=== PATIENT | male | born 1990 ===

== ENCOUNTER 2017-12-01 18:30 | Emergency (ER) | payer OTHER ==
[2017-12-01 19:15] VITALS: BP 139/101; PULSE 77; TEMP 98.9; BMI 25.1
--- NOTE | 2017-12-01 19:30 | PDOC ---
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 He presents emergency Department with 2 weeks of intermittent chest pain. Patient states he has noticed that his chest pain has worsened in severity, and increased in frequency over the last 2 weeks. Pain is located in the left chest, described as muscle cramping. Episodes last approximately 10 minutes and self resolved. Pain radiates to the arm and to the left neck. No shortness of breath. No recent travel. Prior to 2 weeks ago, no prior episodes like this. Patient initially states that there are no exacerbating or alleviating factors. However when asked specifically if pain worsens when he exerts himself, he states yes but not all the time. Pain improves when patient relaxes. No cough. No skin changes/rash. No chest wall trauma No chest pain now PMH: Hyperaldostoronism PSH: Denies Meds: Spironolactone ALL: NKDA Social: Denies Drug, Tobacco use FH: non contributory GENERAL/CONSTITUTIONAL: No: fever, chills, weakness, loss of appetite. HEAD, EYES, EARS, NOSE AND THROAT: No: change in vision, ear pain, discharge, sore throat, throat swelling. CARDIOVASCULAR: Yes: chest pain No: lightheadedness, palpitations, syncope RESPIRATORY: No: cough, shortness of breath, wheezing, hemoptysis, stridor. GASTROINTESTINAL: No: nausea, vomiting, diarrhea, abdominal cramping, rectal bleeding, constipation. GENITOURINARY: No: dysuria, hematuria, frequency, urgency, flank pain. MUSCULOSKELETAL: No: back pain, neck pain, joint pain, muscle swelling or pain SKIN AND BREASTS: No: lesions, pallor, rash or easy bruising. NEUROLOGIC: No: headache, vertigo, paresthesias, weakness ENDOCRINE: No: unexplained weight gain or loss HEMATOLOGIC/LYMPHATIC: No: anemia, easy bleeding, swelling nodes. GENERAL: The patient is in no acute distress. HEAD: Normal with no signs of trauma. EYES: PERRLA, EOMI, sclera anicteric, conjunctiva clear. ENT: Ears normal, nares patent, oropharynx clear without exudates. Moist mucous membranes. NECK: Normal range of motion, supple without lymphadenopathy, JVD, or masses. LUNGS: Breath sounds equal, clear to auscultation bilaterally. No wheezes, and no crackles. HEART:Regular rate and rhythm, normal S1 and S2 without murmur, rub or gallop. ABDOMEN: Soft, nontender, normoactive bowel sounds. No guarding, no rebound. No masses palpable. EXTREMITIES: Normal range of motion, no edema. No clubbing or cyanosis. No erythema, or tenderness. NEUROLOGICAL: Cranial nerves II through XII grossly intact. Normal speech. No focal neurological deficits. MUSCULOSKELETAL: Back non-tender to palpation, no CVA tenderness SKIN: Warm, Dry, normal turgor, no rashes or lesions noted. 12/01/17 20:07 Past History - Past Medical History Allergies/Adverse Reactions: Allergies Allergy/AdvReac Type Severity Reaction Status Date / Time No Known Allergies Allergy Verified 12/01/17 19:02 Home Medications: Ambulatory Orders Spironolactone 100 mg PO DAILY 12/01/17 COPD: No HTN: Yes - Suicide/Smoking/Psychosocial Hx Smoking History: Current every day smoker Have you smoked in the past 12 months: Yes Number of Cigarettes Smoked Daily: 6 Information on smoking cessation initiated: Yes Substance Use Type: None *Physical Exam - Vital Signs Last Vital Signs Temp Pulse Resp BP Pulse Ox 98.9 F 77 20 139/101 100 12/01/17 18:32 12/01/17 18:32 12/01/17 18:32 12/01/17 18:32 12/01/17 18:32 ED Treatment Course - LABORATORY CBC & Chemistry Diagram: 12/01/17 19:43 12/01/17 19:43 Medical Decision Making - Medical Decision Making 12/01/17 19:30 EKG: SR rate of 87 bpm, axis nml, intervals nml, J point elevation v2, v3 12/01/17 20:09 DD includes Musculoskeletal pain, Pneumothorax, pleural effusion, pneumonia/bronchitis PE unlikely (Low risk wells, PERC negative) Will do: Labs CXR EKG Follow up with PMD 12/01/17 20:27 Laboratory Tests 12/01/17 19:43 WBC 8.2 Hgb 12.8 Hct 37.3 Plt Count 312 Neutrophils % 47.1 Lymphocytes % 38.2 12/01/17 20:59 Laboratory Tests 12/01/17 12/01/17 19:43 19:43 Sodium 136 Potassium 3.6 Chloride 105 Carbon Dioxide 23 BUN 19 H Creatinine 1.2 Random Glucose 84 Alkaline Phosphatase 70 Troponin I < 0.03 Labs WNL Pt chest pain free now Will plan to discharge to home Will ask pt to follow up with PMD *DC/Admit/Observation/Transfer Diagnosis at time of Disposition: Chest pain Qualifiers: Chest pain type: unspecified Qualified Code(s): R07.9 - Chest pain, unspecified - Discharge Dispostion Disposition: HOME Condition at time of disposition: Stable Decision to Admit order: No - Referrals Referrals: Serjio Abernathy MD [Staff Physician] - - Patient Instructions Printed Discharge Instructions: DI for Atypical Chest Pain Additional Instructions: Mr Cramer Thanks for coming in to the ER to be evaluated You MUST follow up with a primary care physician NEXT WEEK Please take Motrin for your chest pain If it worsens YOU MUST return to the ER to be re evaluated Please review your labs and EKG results (copies were given to you) - Post Discharge Activity
[2017-12-01 20:02] LABS: BASO % 0.9 % (0-2.0); EOS % 3.6 % (0-4.5); HEMATOCRIT 37.3 % (35.4-49); HEMOGLOBIN 12.8 GM/dl (11.7-16.9); LYMPH % 38.2 % (8-40); MCHC 34.3 g/dl (32.0-35.9); MEAN CELL VOLUME 87.5 fl (80-96); MEAN PLT VOLUME 7.4 fl (7.5-11.1); MONO % 10.2 % (3.8-10.2); NEUT % 47.1 % (42.8-82.8); PLATELET COUNT 312 K/MM3 (134-434); RBC 4.27 M/mm3 (4.00-5.60); RDW 11.5 % (11.9-15.9); WHITE BLOOD COUNT 8.2 K/mm3 (4.0-10.8)
[2017-12-01 20:20] LABS: ALBUMIN 4.5 g/dl (3.5-5.0); ALK PHOS 70 U/L (32-92); ANION GAP 8 (8-16); BILIRUBIN,TOTAL 0.8 mg/dl (0.2-1.0); BLOOD UREA NITROGEN 19 mg/dl (7-18); CALCIUM 9.2 mg/dl (8.4-10.2); CHLORIDE 105 mmol/L (98-107); CO2 23 mmol/L (22-28); CREATININE 1.2 mg/dl (0.6-1.3); GLUCOSE,RANDOM 84 mg/dl (74-106); POTASSIUM 3.6 mmol/L (3.5-5.1); SGOT/AST 29 U/L (10-42); SGPT/ALT 18 U/L (10-40); SODIUM 136 mmol/L (136-145); TOT PROT 6.9 g/dl (6.4-8.3)
--- NOTE | 2017-12-02 09:17 | EKG ---
Test Reason : Blood Pressure : / mmHG Vent. Rate : 087 BPM Atrial Rate : 087 BPM P-R Int : 152 ms QRS Dur : 084 ms QT Int : 368 ms P-R-T Axes : 057 018 017 degrees QTc Int : 442 ms NORMAL SINUS RHYTHM ST ELEVATION, CONSIDER EARLY REPOLARIZATION BORDERLINE ECG NO PREVIOUS ECGS AVAILABLE Confirmed by LUISANA KNOX MD ([id number]) on 12/02/2017 9:17:14 AM Referred By: MD MAST Confirmed By:LUISANA KNOX MD
== END 2017-12-01 21:23 | disposition home or self-care (01) ==
LOC: FER 18:30
DX: R07.9 Chest pain, unspecified (principal); E26.9 Hyperaldosteronism, unspecified
CPT/HCPCS: 36415; 71045-TC-FY; 80053; 84484; 85025; 93005; 99283-25

== ENCOUNTER 2017-12-23 19:03 | Emergency (ER) | payer OTHER ==
[2017-12-23 19:18] VITALS: PULSE 87; TEMP 98.7; BMI 25.1
--- NOTE | 2017-12-23 19:38 | PDOC ---
History of Present Illness - General History Source: Patient Exam Limitations: No Limitations - History of Present Illness Initial Comments: 12/23/17 21:01 Patient is a 27 year old male with a significant past medical history of hyperaldosteronism, currently taking spironolactone, HTN, who presents to the ED with complaints of throat pain that began multiple weeks ago. Patient reports experiencing throat pain that has gradually gotten worse over time, prompting him to come into the ED for further evaluation. He reports experiencing associated symptoms of difficulty swallowing and decreased appetite secondary to throat pain. Denies chest pain, Sob. Denies nausea, vomiting. Denies fevers, chills. Denies contact with sick individuals, out of state travelling. Denies dysuria, hematuria. Denies diarrhea, constipation. Denies head trauma, blurred vision, loss of consciousness. Denies any other symptoms. Allergies: None Social history: Lives with girlfriend. No smoking. No alcohol. Surgical history: None PMD: None <Kevin Mauro - Last Filed: 12/23/17 21:01> <Opal Dias - Last Filed: 12/23/17 21:31> - General Chief Complaint: Dysphagia Stated Complaint: SORE THROAT Time Seen by Provider: 12/23/17 19:37 Past History <Kevin Mauro - Last Filed: 12/23/17 21:01> - Past Medical History COPD: No HTN: Yes - Immunization History Immunization Up to Date: Yes - Suicide/Smoking/Psychosocial Hx Smoking History: Current every day smoker Have you smoked in the past 12 months: Yes Number of Cigarettes Smoked Daily: 6 Information on smoking cessation initiated: Yes 'Breaking Loose' booklet given: 12/23/17 Hx Alcohol Use: No Drug/Substance Use Hx: No Substance Use Type: None <Opal Dias - Last Filed: 12/23/17 21:31> - Past Medical History Allergies/Adverse Reactions: Allergies Allergy/AdvReac Type Severity Reaction Status Date / Time No Known Allergies Allergy Verified 12/23/17 19:05 Home Medications: Ambulatory Orders Spironolactone 100 mg PO DAILY 12/01/17 Ranitidine HCl [Zantac] 300 mg PO HS #30 tablet 12/23/17 Review of Systems - Review of Systems Able to Perform ROS?: Yes Comments:: 12/23/17 21:01 GENERAL/CONSTITUTIONAL: No fever or chills. No weakness. HEAD, EYES, EARS, NOSE AND THROAT: +Throat pain. No change in vision. No ear pain or discharge. CARDIOVASCULAR: No chest pain or shortness of breath. RESPIRATORY: No cough, wheezing, or hemoptysis. GASTROINTESTINAL: No nausea, vomiting, diarrhea or constipation. GENITOURINARY: No dysuria, frequency, or change in urination. MUSCULOSKELETAL: No joint or muscle swelling or pain. No neck or back pain. SKIN: No rash NEUROLOGIC: No headache, vertigo, loss of consciousness, or change in strength/ sensation. ENDOCRINE: No increased thirst. No abnormal weight change. HEMATOLOGIC/LYMPHATIC: No anemia, easy bleeding, or history of blood clots. ALLERGIC/IMMUNOLOGIC: No hives or skin allergy. <Kevin Mauro - Last Filed: 12/23/17 21:01> *Physical Exam - Vital Signs Last Vital Signs Temp Pulse Resp BP Pulse Ox 98.7 F 87 15 140/96 100 12/23/17 19:05 12/23/17 19:05 12/23/17 19:05 12/23/17 20:54 12/23/17 19:05 - Physical Exam Comments: 12/23/17 21:01 GENERAL: Awake, alert, and fully oriented, in no acute distress HEAD: No signs of trauma EYES: PERRLA, EOMI, sclera anicteric, conjunctiva clear ENT: +Enlarged tonsils bilaterally. Auricles normal inspection, hearing grossly normal, nares patent, oropharynx clear without exudates. Moist mucosa NECK: Normal ROM, supple, no lymphadenopathy, JVD, or masses LUNGS: Breath sounds equal, clear to auscultation bilaterally. No wheezes, and no crackles HEART: Regular rate and rhythm, normal S1 and S2, no murmurs, rubs or gallops ABDOMEN: Soft, nontender, normoactive bowel sounds. No guarding, no rebound. No masses EXTREMITIES: Normal range of motion, no edema. No clubbing or cyanosis. No cords, erythema, or tenderness NEUROLOGICAL: Cranial nerves II through XII grossly intact. Normal speech, normal gait SKIN: Warm, Dry, normal turgor, no rashes or lesions noted. <Kevin Mauro - Last Filed: 12/23/17 21:01> - Vital Signs Last Vital Signs Temp Pulse Resp BP Pulse Ox 98.7 F 87 15 159/109 100 12/23/17 19:05 12/23/17 19:05 12/23/17 19:05 12/23/17 19:05 12/23/17 19:05 <Opal Dias - Last Filed: 12/23/17 21:31> ED Treatment Course - ADDITIONAL ORDERS Additional order review: 12/23/17 20:15 Group A Strep Rapid Antigen - Final Throat NEGATIVE FOR THE ANTIGEN OF BETA HEMOLYTIC STREP GROUP A <Kevin Mauro - Last Filed: 12/23/17 21:01> Medical Decision Making - Medical Decision Making 12/23/17 21:29 Pt comes with sore throat and hx of GERD. He has a normal rapiud strep. His cheif complaint is difficulty swallowing large boluses of food. Soft tissue neck XR normal. POt referred to GI for upper EGD. Pt is well hydrated and his voice is normal. He is able to chew nd swallow his food. He is not dehydrated or anorexic. He will be treted with zantac and referred to GI. <Opal Dias - Last Filed: 12/23/17 21:31> *DC/Admit/Observation/Transfer - Attestations Scribe Attestion: 12/23/17 21:02 Documentation prepared by Kevin Mauro, acting as medical case manager for Opal Dias MD. <Kevin Mauro - Last Filed: 12/23/17 21:01> - Discharge Dispostion Decision to Admit order: No <Opal Dias - Last Filed: 12/23/17 21:31> Diagnosis at time of Disposition: GERD (gastroesophageal reflux disease) - Discharge Dispostion Disposition: HOME Condition at time of disposition: Stable - Prescriptions Prescriptions: Ranitidine HCl [Zantac] 300 mg PO HS #30 tablet - Referrals Referrals: Johnnie Zambrano MD [Staff Physician] - Jimbo Barrow MD [Staff Physician] - - Patient Instructions Printed Discharge Instructions: Gastroesophageal Reflux Disease (Alternative Therapy)
[2017-12-23 20:55] VITALS: BP 140/96
== END 2017-12-23 21:00 | disposition home or self-care (01) ==
LOC: FER 19:03
DX: K21.9 Gastro-esophageal reflux disease without esophagitis (principal); E78.00 Pure hypercholesterolemia, unspecified; I10 Essential (primary) hypertension; F17.210 Nicotine dependence, cigarettes, uncomplicated
CPT/HCPCS: 70360-TC-FY; 87070; 87430; 99282-25